=== PATIENT | female | born 1985 | race Caucasian/White ===

== ENCOUNTER → 2020-03-12 | Outpatient (CLI) | payer OTHER ==
[~2020-03-12] MED LIST: ASCO500T8 PO; DOCO200C3 PO; LOSA1TAB19 PO; NIFE-7 PO; NORE5TAB PO; PANT40TA5 PO; PNV11CAP5 PO; UBID100C24 PO
== END | disposition home or self-care (01) ==
LOC: STAR 10:42
PROVIDERS: ATTEND Anesthesiology
DX: Z01.818 Encounter for other preprocedural examination (principal); Z11.59 Encounter for screening for other viral diseases
CPT/HCPCS: 36415; 87635

== ENCOUNTER 2020-03-15 12:56 | Day surgery (SDC) | payer OTHER ==
[2020-03-13 09:12] LABS: MICROSCOPIC AUTO
[2020-03-13 09:18] LABS: ALBUMIN 3.9 g/dL (3.4-5.0); ANION GAP 5 mmol/L (5-15); CALCIUM 9.4 mg/dL (8.5-10.1); CHLORIDE 108 mmol/L (98-107)
[2020-03-13 09:22] LABS: BASOPHILS # (AUTO) 0.05 x10^3/uL (0-0.1); BASOPHILS % (AUTO) 1 % (0-1); EOSINOPHILS # (AUTO) 0.27 x10^3/uL (0-0.4); EOSINOPHILS % (AUTO) 4 % (1-7); LYMPHOCYTES # (AUTO) 1.91 x10^3/uL (1-3.4); LYMPHOCYTES % (AUTO) 25 % (22-44); MD NO; MEAN CORPUSCULAR HEMOGLOBIN 29.9 pg (27.0-34.8); MEAN CORPUSCULAR HGB CONC 33.1 g/dL (32.4-35.8); MEAN CORPUSCULAR VOLUME 90.5 fL (80-100); MEAN PLATELET VOLUME 9.3 fL (7.4-10.4); MONOCYTES # (AUTO) 0.68 x10^3/uL (0.2-0.8); MONOCYTES % (AUTO) 9 % (2-9); NEUTROPHILS # (AUTO) 4.74 x10^3/uL (1.8-6.8); NEUTROPHILS % (AUTO) 62 % (42-75); PLATELET COUNT 326 x10^3/uL (130-400); RED CELL DISTRIBUTION WIDTH 12.3 % (9.6-15.2)
[2020-03-13 09:25] LABS: ALANINE AMINOTRANSFERASE 17 U/L (12-78); ALKALINE PHOSPHATASE 55 U/L (45-117); BILIRUBIN,TOTAL 0.5 mg/dL (0.2-1.0); CREATININE 0.96 mg/dL (0.55-1.02); TOTAL PROTEIN 7.7 g/dL (6.4-8.2)
[~2020-03-15] VITALS: Ht 162.6 cm; Wt 87.1 kg
[2020-03-15] MEDS ORDERED: CHLORHEXIDINE 15 ML UDC MM STA (13:09)
[2020-03-15] MEDS ORDERED: LACTATED RINGERS 1,000 ML IV SCH ×2 (13:09→18:30)
[2020-03-15] MEDS ORDERED: BUPIVACAINE/PF-EPI 0.25% 1:200K ONE (15:21)
[2020-03-15] MEDS ORDERED: SILVER NITRATE STICK TP ONE (15:22)
[2020-03-15] MEDS ORDERED: MIDAZOLAM 1 MG/ML, 2ML ONE (15:34)
[2020-03-15] MEDS ORDERED: FENTANYL PF 250 MCG/5ML ONE (15:34)
[2020-03-15] MEDS ORDERED: PROPOFOL 50 ML ONE (16:21)
[2020-03-15] MEDS ORDERED: OXYcodone 5 MG/5 ML ORAL.SOL UDC ONE (16:48)
[2020-03-15] MEDS ORDERED: FENTANYL PF 100 MCG/2ML ONE ×2 (16:48→17:05)
[2020-03-15] MEDS: FENTANYL PF 100 MCG/2ML IV PRN ×4 (16:53→17:25)
[2020-03-15] MEDS ORDERED: ONDANSETRON 2MG/ML, 2ML ONE (16:56)
[2020-03-15] MEDS ORDERED: MEPERIDINE/PF 25MG/0.5ML IVPush PRN (17:00)
[2020-03-15] MEDS ORDERED: DIAZEPAM 5 MG/ML, 2ML IVPush PRN (17:00)
[2020-03-15] MEDS ORDERED: PROMETHAZINE 25 MG/ML, 1ML IVPush PRN (17:00)
[2020-03-15] MEDS ORDERED: morphine SULFATE 10 MG/ML, 1ML IVPush PRN (17:00)
[2020-03-15] MEDS ORDERED: ONDANSETRON 2MG/ML, 2ML IVPush PRN (17:00)
[2020-03-15] MEDS ORDERED: DIPHENHYDRAMINE 50 MG/ML, 1ML IVPush PRN (17:00)
[2020-03-15] MEDS ORDERED: EPHEDRINE 50 MG/ML, 1ML IVPush PRN (17:00)
[2020-03-15] MEDS ORDERED: EPHEDRINE 50 MG/ML, 1ML IM PRN (17:00)
[2020-03-15] MEDS ORDERED: ACETAMINOPHEN 325 MG TABLET PO PRN (17:00)
[2020-03-15] MEDS ORDERED: OXYcodone 5 MG/5 ML ORAL.SOL UDC PO PRN (17:00)
[2020-03-15] MEDS ORDERED: HYDROcodone/APAP 7.5-325MG/15ML UDC PO PRN (18:30)
[2020-03-15] MEDS ORDERED: ONDANSETRON 2MG/ML, 2ML IV PRN (18:30)
[2020-03-15] MEDS ORDERED: morphine SULFATE 10 MG/ML, 1ML IV PRN (18:30)
[2020-03-15] MEDS ORDERED: KETOROLAC 30 MG/1 ML IV PRN (18:30)
[2020-03-15 19:21] VITALS: BP 117/71
== END 2020-03-15 21:30 | disposition home or self-care (01) ==
LOC: OUT 12:56 → 4NE 17:56 → OUT 21:30
PROVIDERS: ATTEND Obstetrics & Gynecology Reproductive Endocrinology
DX: N84.0 Polyp of corpus uteri (principal); Z79.899 Other long term (current) drug therapy; Z91.018 Allergy to other foods
CPT/HCPCS: 36415; 58558; 80053; 81001; 84702; 85025; 87086; 88305; J2250; J2405; J2704; J3010; J7120; G0378